=== PATIENT | female | born 2005 ===

== ENCOUNTER 2023-11-07 10:24 | Outpatient (CLI) | payer OTHER | END 2023-11-07 10:27 | disposition home or self-care (01) | LOC: RAD 10:24 | DX: M79.641 Pain in right hand (principal) ==

== ENCOUNTER 2023-11-18 15:43 | Outpatient (CLI) | payer OTHER | END 2023-11-18 15:49 | disposition home or self-care (01) | LOC: RAD 15:43 | DX: Z00.00 Encounter for general adult medical examination without abnormal findings (principal) ==

== ENCOUNTER 2025-04-18 11:43 | Outpatient (CLI) | payer OTHER | END 2025-04-18 11:45 | disposition home or self-care (01) | LOC: RAD 11:43 | DX: M79.673 Pain in unspecified foot (principal) ==